=== PATIENT | male | born 1990 | race African-American/Black ===

== ENCOUNTER → 2024-12-17 | Outpatient (CLI) | payer OTHER ==
--- NOTE | 2024-12-17 11:46 | HMCIMG ---
MR KNEE LEFT WO HISTORY: Pain COMPARISON: None TECHNIQUE: MRI of the left knee was performed utilizing multiple pulse sequences in axial, coronal and sagittal planes. Patient was not given contrast through intravenous route. FINDINGS: Minimal bone edema is seen involving the medial aspect of the proximal tibia. There is tiny joint effusion. The anterior cruciate and posterior cruciate ligaments are grossly intact. The medial and lateral collateral ligaments are also intact. Quadriceps tendon and patellar tendon are within normal limits. There is intrasubstance tear involving the medial and lateral menisci. There is subtle medial meniscal tear involving the posterior horn with inferior articular extension. No evidence of Marc's cyst is seen. There is left upper pole renal cyst measuring 17 mm. 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 There is focal patella cartilage loss. IMPRESSION: 1. Minimal bone edema is seen involving the medial aspect of the proximal tibia. There is tiny joint effusion. Subtle medial meniscal tear.
--- NOTE | 2024-12-17 12:16 | HMCIMG ---
MR SPINAL CANAL, LUMBAR WO CON HISTORY: Back pain COMPARISON: None TECHNIQUE: MRI of the lumbar spine was performed utilizing multiple pulse sequences in axial , coronal and sagittal plane. Patient was not given contrast through intravenous route. FINDINGS: No abnormal signal intensity is seen of the visualized bony structure. No loss of vertebral height is seen. There is straightening of normal lumbar curvature which may be related to muscle spasm or positioning. Degenerative disc signals are present at L5-S1. Visualized distal conus is unremarkable. At the L5-S1 level, there is central disc protrusion/herniation with annular tear measuring 4.9 mm in thickness causing anterior thecal sac compression with bilateral lateral recess stenosis and bilateral neural foraminal stenosis. The thecal sac measures approximately 4.9 mm in its anterior posterior dimension. IMPRESSION: 1. Central disc protrusion/herniation with annular tear at L5-S1 level causing bilateral neural foraminal stenosis and central canal narrowing.
== END | disposition home or self-care (01) ==
LOC: RAH 09:13
PROVIDERS: ATTEND Family Medicine
DX: S83.242A Other tear of medial meniscus, current injury, left knee, initial encounter (principal); M25.562 Pain in left knee; M51.17 Intervertebral disc disorders with radiculopathy, lumbosacral region; M48.07 Spinal stenosis, lumbosacral region; X58.XXXA Exposure to other specified factors, initial encounter; Y93.89 Activity, other specified; Y92.89 Other specified places as the place of occurrence of the external cause; Y99.8 Other external cause status
CPT/HCPCS: 72148; 73721